=== PATIENT | female | born 1945 | race Two or more races ===

== ENCOUNTER 2022-05-14 16:15 | Emergency (ER) | payer BC, OTHER ==
[~2022-05-14] VITALS: Ht 152.4 cm; Wt 65.8 kg
[2022-05-14 16:40] VITALS: BP 162/76
[2022-05-14] MEDS ORDERED: DICYCLOMINE HCL LIQUID 20 MG, ALUMINUM HYD/MAG/SIMETHICONE 30 ML, LIDOCAINE VISCOUS 2% ... PO ONE ×3 (17:05)
[2022-05-14] MEDS ORDERED: DICYCLOMINE HCL LIQUID 10 MG/5 ML UDC ONE (17:08)
[2022-05-14] MEDS ORDERED: ALUMINUM HYD/MAG/SIMETHICONE 30 ML UDC ONE (17:08)
--- NOTE | 2022-05-14 17:18 | NUR ---
76 Y/O FEMALE BIB SELF C/O X1 EPISODE OF VOMITING AND BILATERAL LEG PAIN DENIES INJURY OR TRAUMA. DENIES ANY ABD PAIN, DIARRHEA PMH: DENIES NKA
[2022-05-14] MEDS ORDERED: ONDA8TAB87 PO (17:24)
[2022-05-14] MEDS ORDERED: IBUP-2213 PO (17:24)
[2022-05-14 17:33] VITALS: BP 162/76
--- NOTE | 2022-05-14 17:33 | NUR ---
Patient discharged with v/s stable. Written and verbal after care instructions given and explained. Patient alert, oriented and verbalized understanding of instructions. Ambulatory with steady gait. All questions addressed prior to discharge. ID band removed. Patient advised to follow up with PMD. Rx of MOTRIN AND ZOFRAN ODT given. Patient educated on indication of medication including possible reaction and side effects. Opportunity to ask questions provided and answered.
== END 2022-05-14 17:33 | disposition home or self-care (01) ==
LOC: MED 16:15
DX: R10.13 Epigastric pain (principal)
CPT/HCPCS: 99283